=== PATIENT | male | born 1935 | race Caucasian/White ===

== ENCOUNTER 2017-10-31 20:12 | Inpatient (IN) | payer MEDICARE, MEDICAID ==
[~2017-10-31] VITALS: Ht 182.9 cm; Wt 81.2 kg
[2017-10-31 20:43] LABS: MEAN CORPUSCULAR HEMOGLOBIN 31.5 pg (27.0-33.0); MEAN CORPUSCULAR HGB CONC 32.9 g/dl (32.0-36.5); MEAN CORPUSCULAR VOLUME 95.7 fl (80.0-96.0); PLATELET COUNT, AUTOMATED 212 10^3/uL (150-450); RED CELL DISTRIBUTION WIDTH 12.9 % (11.5-14.5); WHITE BLOOD COUNT 12.1 10^3/uL (4.0-10.0)
[2017-10-31] MEDS ORDERED: ACETAMINOPHEN 650 MG SUPP PR ONE (20:45)
[2017-10-31] MEDS ORDERED: NS 500 ML IV ONE (20:45)
[2017-10-31 21:01] LABS: ADD MANUAL DIFFER YES; DIFF SLIDE NUMBER 301
[2017-10-31 21:05] LABS: BANDS 11 % (< 11); BASOPHILS 1 % (0-4)
[2017-10-31 21:18] LABS: ALBUMIN 3.4 GM/DL (3.2-5.2); ALBUMIN/GLOBULIN RATIO 0.97 (1.00-1.93); ALKALINE PHOSPHATASE 91 U/L (45-117); ALT/SGPT 27 U/L (12-78); ANION GAP 11 MEQ/L (8-16); AST/SGOT 28 U/L (7-37); BILIRUBIN,DIRECT < 0.1 MG/DL (0.0-0.2); BILIRUBIN,TOTAL 0.3 MG/DL (0.2-1.0); BLOOD UREA NITROGEN 18 MG/DL (7-18); CALCIUM LEVEL 8.8 MG/DL (8.8-10.2); CARBON DIOXIDE LEVEL 25 MEQ/L (21-32); CHLORIDE LEVEL 107 MEQ/L (98-107); CREATININE FOR GFR 0.96 MG/DL (0.70-1.30); GLOMERULAR FILTRATION RATE > 60.0 (>35); GLUCOSE, FASTING 101 MG/DL (83-110); POTASSIUM SERUM 3.4 MEQ/L (3.5-5.1); SODIUM LEVEL 143 MEQ/L (136-145); T UPTAKE 37 % (33-40); THYROXINE (T4) 9.2 UG/DL (4.5-12.0); TOTAL PROTEIN 6.9 GM/DL (6.4-8.2)
[2017-10-31] MEDS ORDERED: VANCOMYCIN HCL 1,000 MG, VIAL MATE ADAPTER 1 EACH in D5W 250 ML IV ONE (21:30)
[2017-10-31] MEDS ORDERED: IMIPENEM/CILASTATIN 500 MG in D5W MINI-BAG PLUS 100 ML IV ONE (21:30)
[2017-10-31] MEDS ORDERED: NS 1,000 ML IV SCH (22:05)
[2017-10-31] MEDS ORDERED: ISOVUE-370 76% 100ML VIAL (Q9967) As Ordered ONE (22:12)
[2017-10-31] MEDS ORDERED: ONDANSETRON 4MG/2ML VIAL (J2405) IV PRN (22:15)
[2017-10-31] MEDS ORDERED: BISA10SU4 PR (22:18)
[2017-10-31] MEDS ORDERED: ENAL10TA2 PO (22:18)
[2017-10-31] MEDS ORDERED: ENEMENE16 PR (22:18)
[2017-10-31] MEDS ORDERED: TYLE650T35 PO (22:18)
[2017-10-31] MEDS ORDERED: LOVA40TA PO (22:18)
[2017-10-31] MEDS ORDERED: TYLE325T5 PO (22:18)
[2017-10-31] MEDS ORDERED: NAME28CA PO (22:18)
[2017-10-31] MEDS ORDERED: MILKSUS PO (22:18)
[2017-10-31] MEDS ORDERED: BISO10TA6 PO (22:18)
[2017-10-31] MEDS ORDERED: BISACODYL 10 MG SUPP PR PRN (22:30)
[2017-10-31] MEDS ORDERED: FLEET ENEMA PR PRN (22:30)
[2017-10-31] MEDS ORDERED: POTASSIUM CHLORIDE 10 MEQ SR TABLET PO ONE (22:30)
[2017-10-31] MEDS ORDERED: MOM 30ML SUSPENSION UDC PO PRN (22:30)
[2017-10-31 22:32] LABS: ERYTHROCYTE SEDIMENTATION RATE 28 mm/hr (0-20)
--- NOTE | 2017-10-31 23:10 | REPUSA ---
CT of the chest Clinical statement: fever. Technique: Multiple axial CT images were obtained from the thoracic inlet through the upper abdomen a fter a bolus administration of nonionic intravenous contrast. Coronal and sagittal reconstructions we re also obtained. Comparison: None. Findings: The central pulmonary arteries and thoracic aorta are unremarkable. Thyroid gland is within normal limits. There is no thoracic lymphadenopathy. There are are small bilateral lower lobe infilt rates. Limited imaging of the upper abdomen is unremarkable. There are no suspicious osseous lesions. Impression: 1. Small bilateral lower lobe infiltrate/atelectasis.
--- NOTE | 2017-10-31 23:10 | REPUSA ---
CT of the abdomen and pelvis with contrast Clinical statement: fever. Technique: Multiple axial CT images were obtained from the base of the lungs through the floor of the pelvis utilizing 5 mm axial slices after administration of nonionic intravenous contrast. Coronal an d sagittal reconstructions were also obtained. No comparison is available. Findings: Abdomen: The liver, spleen, pancreas, kidneys, gallbladder, and adrenal glands are unremarkable. Asya ral bilateral renal cysts are noted. The aorta demonstrates moderate diffuse atherosclerosis, but is otherwise within normal limits. There is no evidence of abdominal lymphadenopathy or ascites. Pelvis: Diffuse diverticulosis of the sigmoid colon is noted. There is no evidence of diverticulitis. The bowel is otherwise unremarkable, with no obstructive or inflammatory changes. The urinary bladd er is catheterized but otherwise within normal limits. The other pelvic structures appear grossly int act. There is no evidence of pelvic lymphadenopathy or ascites. Bones: There are no suspicious osseous abnormalities seen. Bilateral hip arthroplasties are intact. M ultilevel degenerative disc disease is noted throughout the lumbar spine, most severe at L1/L2. Impression: 1. No obstructive or inflammatory bowel changes. Diffuse sigmoid diverticulosis. 2. No evidence of hydronephrosis or nephrolithiasis. Simple bilateral renal cysts. 3. Moderate spondylosis of the lumbar spine.
[2017-11-01] VITALS (7 sets, daily range): BP systolic 120–176; BP diastolic 57–83
[2017-11-01] MEDS ORDERED: PRAD150C (01:55)
[2017-11-01] MEDS ORDERED: MELO15TA4 (01:55)
[2017-11-01] MEDS ORDERED: CART180C3 (01:55)
[2017-11-01] MEDS ORDERED: ENOXAPARIN 80 MG/0.8 ML SYRINGE (J1650) SC SCH (04:00)
[2017-11-01 05:31] LABS: MEAN CORPUSCULAR HEMOGLOBIN 30.8 pg (27.0-33.0); MEAN CORPUSCULAR HGB CONC 32.7 g/dl (32.0-36.5); MEAN CORPUSCULAR VOLUME 94.1 fl (80.0-96.0); PLATELET COUNT, AUTOMATED 212 10^3/uL (150-450); WHITE BLOOD COUNT 21.3 10^3/uL (4.0-10.0)
[2017-11-01] MEDS ORDERED: DONE1TAB62 PO (05:32)
[2017-11-01] MEDS ORDERED: CART180C3 PO (05:32)
[2017-11-01] MEDS ORDERED: MELO15TA4 PO (05:32)
[2017-11-01] MEDS ORDERED: PRAD150C PO (05:32)
[2017-11-01 05:41] LABS: ANION GAP 8 MEQ/L (8-16); BLOOD UREA NITROGEN 19 MG/DL (7-18); CALCIUM LEVEL 8.3 MG/DL (8.8-10.2); CARBON DIOXIDE LEVEL 25 MEQ/L (21-32); CHLORIDE LEVEL 109 MEQ/L (98-107); CREATININE FOR GFR 0.88 MG/DL (0.70-1.30); GLOMERULAR FILTRATION RATE > 60.0 (>35); GLUCOSE, FASTING 110 MG/DL (83-110); MAGNESIUM LEVEL 1.9 MG/DL (1.8-2.4); POTASSIUM SERUM 4.2 MEQ/L (3.5-5.1); SODIUM LEVEL 142 MEQ/L (136-145)
[2017-11-01] MEDS ORDERED: HEPARIN SOD (PORCINE) 5000 UNITS/ML VIAL SC SCH (06:00)
--- NOTE | 2017-11-01 06:37 | HPE ---
DATE OF ADMISSION: 10/31/2017 PRIMARY CARE PROVIDER: Dr. Bing Monreal. HISTORY OF PRESENT ILLNESS: The patient is an 82-year-old male with past medical history significant for Alzheimer's dementia, two silent myocardial infarctions (NC), and hypertension, who was transferred from [facility] to [facility] on 10/31/2017, for fevers. The patient was just recently admitted to [facility] on 10/31/2017. Within hours, the patient was found to have a temperature of 104; therefore, the patient was transferred to [facility] Emergency Room for further evaluation. The patient has severe Alzheimer's dementia, not able to answer questions. Information was obtained by reviewing the chart and also talked to the son who is present in the room. Per the family member, the patient has been having chills and fevers. There was some increased cough in the past few weeks, and the patient also has urinary incontinence. He also was noted to have more frequent falls, more significant in the last few weeks. The patient was seen by the primary care provider last , and was told the lungs were clear. Does not have nausea, vomiting or abdominal pain, but the patient has been having intermittent diarrhea, but it seems to be patient's baseline. The patient does not have any back sores. PAST MEDICAL HISTORY: 1. Two sudden NC resulting in open heart surgery (CABG) more than 25 years ago. 2. Hypertension. PAST SURGICAL HISTORY: 1. Bilateral hip replacement. 2. CABG approximately more than 25 years ago. ALLERGIES: None. SOCIAL HISTORY: The patient used to smoke a pipe. Quite 25 years ago. No alcohol use. No recreational drug use. The patient is DO NOT RESUSCITATE (DNR) and DO NOT INTUBATE (DNI). REVIEW OF SYSTEMS: Unable to obtain due to the patient's baseline dementia, but information obtained from the family member includes fever and chills and urinary incontinence, some mild increased cough, chronic bilateral hip and bilateral knee pain. The patient does have urinary incontinence. OBJECTIVE: VITAL SIGNS: Temperature is 101.2, pulse 88, respirations 20, blood pressure 137/71, pulse oximetry 93% with three liters nasal cannula. GENERAL: The patient is alert and awake, in mild to moderate distress, not oriented at all, not able to answer questions, not really able to follow command. HEENT: Normocephalic, atraumatic. CARDIOVASCULAR: There is a positive S1, S2. LUNGS: Positive crackles in the lung base. I cannot appreciate any wheezes. ABDOMEN: There are a few occasions the patient shows facial grimace when touched in abdomen but the finding cannot be reproduced consistently. Bowel sounds present. EXTREMITIES: No edema. No cyanosis. NEUROLOGIC: Unable to test due to patient not able to follow commands. LABORATORY DATA: WBC 12.1, hemoglobin 13.3, hematocrit 40.4, platelet count 215. Band is 11. Sodium 143, potassium 3.4, chloride 107, carbon dioxide 25, BUN is 11, creatinine 0.96, GFR greater than 60, fasting glucose 101, lactic acid 1.6, calcium 8.8, total bilirubin 0.3, direct bilirubin less than 0.1, AST 28, ALT 27, alkaline phosphatase 91, total protein 6.9, albumin 3.4. TSH 2.11. T4 is 9.2. UA is cloudy with 3+ blood, positive nitrite, with 3+ leukocyte esterase, too many to count RBC, 3+ bacteria. ASSESSMENT AND PLAN: 1. Fever of unknown origin: Patient admitted to progressive care unit (PCU) under inpatient status. There is a finding on imaging study that suggests lung source versus urinary source. Blood cultures pending. Urine culture pending. Followup with CT of the chest and abdomen. Patient has had a dose of broad-spectrum antibiotic in the emergency room. The patient was started on Rocephin intravenous (IV) for now. Continue with fluid support. 2. Hypertension: Continue home medication, which includes Zebeta 10 mg by mouth daily, Vasotec 10 mg by mouth daily. 3. History of two silent myocardial infarctions (NC), status post open heart surgery: Patient on atorvastatin. Patient on Zebeta and Vasotec. 4. Deep venous thrombosis (DVT) prophylaxis: The patient will be on heparin. 5. Paroxysmal Atrial fibulation. On beta ijeoma. Rate in satisfactory range. On therapeutic dose of Lovenox. Patient did have one brief episode of Atrial fibulation earlier. But rhythm return to sinus in few hours. CODE STATUS: DO NOT RESUSCITATE (DNR), DO NOT INTUBATE (DNI). Addendum: When more information became available. Patient has diagnosis of A fib. Not sure why patient is not on anticoagulation at this moment. Update the info as Diagnosis 5. MTDD
--- NOTE | 2017-11-01 06:45 | IPN ---
DATE: 11/01/2017 Shortly after the admission process, the patient was found to have an irregular heart rate. An EKG was obtained and it showed atrial fibrillation. Shortly after the patient settled into the progressive care unit (PCU), the patient's heart rhythm converted back to sinus rhythm. No prior information is available. It is not sure whether the patient has a history of atrial fibrillation in the past or if this is just a new isolated incident of atrial fibrillation. The patient's anticoagulation is switched to a therapeutic dose of Lovenox. We will try to obtain the records from the primary care provider prior to the [facility] admission. Will also look for [facility] Home admission notes to confirm the patient's complete medical history and the patient's medication list. Throughout the whole time, the patient is resting comfortably in bed with no acute distress.
--- NOTE | 2017-11-01 07:36 | REP ---
AP and lateral chest: Comparison is 03/16/2011. There is an incomplete inspiratory effort with under aeration of the lung triplett. No focal infiltrates are identified. No pleural effusions are identified. Cardiac size is normal. There are sternotomy wires, unchanged. The angel, mediastinum, and bony thorax are unremarkable. Impression: Incomplete inspiratory effort, otherwise negative AP and lateral chest. Signed by Manoj Varela MD 11/01/2017 07:28 A
[2017-11-01] MEDS: CEFTRIAXONE SOD 1 GM in APPROPRIATE DILUENT 1 EA IV SCH (08:37)
[2017-11-01] MEDS: BISOPROLOL FUMARATE 10 MG TAB PO SCH (08:37)
[2017-11-01] MEDS: ENALAPRIL MALEATE 10 MG TAB PO SCH (08:38)
--- NOTE | 2017-11-01 10:51 | IPNPDOC ---
Subjective Date Seen The patient was seen on 11/01/17. Subjective Chief Complaint/HPI The patient is a 82-year-old male admitted with a reason for visit of FEVER. Events since last encounter patient does not offer any complaints. Patient is pleasantly demented and humorous in his answers, Does not where he is . Does not recognize family has been his baseline for the past 3 to 4 years. No fever after admission. denied any nausea or vomiting or diarrhea, denied any cough . Does not remember whether he ate or not. However as per family when food is offered to him eats by himself otherwise does not eat. walks with a walker. Objective Physical Examination General Exam: Positive: Alert, Cooperative, No Acute Distress, Other (confused. ) Eye Exam: Positive: PERRLA, Conjunctiva & lids normal, EOMI, Negative: Sclera icteric ENT Exam: Positive: Atraumatic, Mucous membr. moist/pink, Pharynx Normal Neck Exam: Positive: Supple, Negative: JVD, thyromegaly Chest Exam: Positive: Rales (at the bases) Heart Exam: Positive: Rate Normal, Regular Rhythm, Normal S1, Normal S2, Negative: Murmurs, Rubs Abdomen Exam: Positive: Normal bowel sounds, Soft, Negative: Tenderness, Hepatospenomegaly Extremity Exam: Positive: Normal pulses, Negative: Clubbing, Cyanosis, Edema Neuro Exam: Positive: Normal Speech, Other (short shuffling gait. ) Psych Exam: Positive: Other (demented.) Assessment /Plan Problems (1) Fever Status: Acute Problem Text: Looking for source of any infection , does have dirty urine and also bilateral basal lung infiltrates. family did say he was coughing more the past few days and also has urinary incontinence. blood culture and urine culture ordered. will continue with empiric antibiotics for possible CAP Vs UTI (2) Paroxysmal A-fib Status: Chronic Problem Text: Now in sinus rhythm. Patient does have high Rodri Vasc 2 score of 4 so does meet criteria for continuing anticoagulation. However patient has fallen 4 times in the last 3 months so that increases the chance of trauma and major intracranial bleeding. Thats why i presume his PMD has stopped the oral anticoagulant. However while in hospital will continue Pradaxa. (3) CAD (coronary artery disease) Status: Chronic Problem Text: history of CABG 25 years ago (4) Hypertension Status: Chronic Problem Text: continue with enalapril (5) Dementia Status: Chronic Problem Text: Advanced dementia cannot recognize family or place. (6) Hyperlipidemia Status: Chronic Problem Text: continue statin Plan/VTE VTE Prophylaxis Ordered?: Yes VS, I&O, 24H, Fishbone Vital Signs/I&O Vital Signs Date Time Temp Pulse Resp B/P (MAP) Pulse Ox O2 Delivery O2 Flow Rate FiO2 11/01/17 08:37 61 123/59 11/01/17 08:00 98.9 17 92 Room Air 11/01/17 00:37 3.0 I&O- Last 24 Hours up to 6 AM 11/02/17 06:00 Intake Total 880 ml Balance 880 ml Laboratory Data 24H LABS Laboratory Tests 2 10/31/17 20:35: Neutrophils 82H, Band Neutrophils 11, Lymphocytes (Manual) 6L, Basophils (Manual ) 1, Platelet Estimate NORMAL, Red Blood Cell Morphology NORMAL, Erythrocyte Sedimentation Rate 28H, Anion Gap 11, Glomerular Filtration Rate > 60.0, Lactic Acid Level 1.6, Calcium Level 8.8, Aspartate Amino Transf (AST/SGOT) 28, Alanine Aminotransferase (ALT/SGPT) 27, Alkaline Phosphatase 91, Total Bilirubin 0.3, Direct Bilirubin < 0.1, C-Reactive Protein, Quantitative 0.64H, Total Protein 6.9, Albumin 3.4, Albumin/Globulin Ratio 0.97L, Thyroid Stimulating Hormone (TSH) 2.110, Free Thyroxine Index 3.4, Thyroxine (T4) 9.2, Triiodothyronine (T3) Uptake 37 10/31/17 21:00: Urine Appearance CLOUDYH, Urine Color YELLOW, Urine pH 5.0, Urine Specific [place] 1.016, Urine Protein NEGATIVE, Urine Glucose (UA) NEGATIVE, Urine Ketones TRACEH, Urine Urobilinogen 0.2, Urine Bilirubin NEGATIVE, Urine Leukocyte Esterase 3+H, Urine Blood 3+H, Urine Nitrite POSITIVE, Urine WBC (Auto ) 93H, Urine RBC (Auto) TNTCH, Urine Hyaline Casts (Auto) 0, Urine Bacteria ( Auto) 3+H, Urine Squamous Epithelial Cells 0, Urine Mucus (Auto) SMALL, Urine Sperm (Auto) 11/01/17 04:53: Anion Gap 8, Glomerular Filtration Rate > 60.0, Calcium Level 8.3L, Nucleated Red Blood Cells % (auto) 0.0, Blood Urea Nitrogen 19H, Creatinine 0.88, Sodium Level 142, Potassium Level 4.2#, Chloride Level 109H, Carbon Dioxide Level 25, Magnesium Level 1.9 CBC/BMP Laboratory Tests 10/31/17 20:35 Red Blood Count 4.22 L, Mean Corpuscular Volume 95.7, Mean Corpuscular Hemoglobin 31.5, Mean Corpuscular Hemoglobin Concent 32.9, Red Cell Distribution Width 12.9 11/01/17 04:53 Red Blood Count 3.90 L, Mean Corpuscular Volume 94.1, Mean Corpuscular Hemoglobin 30.8, Mean Corpuscular Hemoglobin Concent 32.7, Red Cell Distribution Width 13.0, Calcium Level 8.3 L Microbiology Microbiology 10/31/17 Blood Culture, Received Pending 10/31/17 Influenza Virus Type A Antigen - Final, Complete 10/31/17 Influenza Virus Type B Antigen - Final, Complete 10/31/17 Urine Culture, Received Pending LILO WHITNEY MD Nov 01, 2017 10:50
[2017-11-01] MEDS ORDERED: SLF 3 ML SYR IV PRN (16:30)
--- NOTE | 2017-11-01 16:51 | ECGEPIP ---
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 No prior ECG available for comparison at the time of interpretation. Electronically Signed On 11-01-2017 16:51:27 EST by Nirmal Mesa
--- NOTE | 2017-11-01 16:53 | ECGEPIP ---
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 Electronically Signed On 11-01-2017 16:53:08 EST by Nirmal Mesa
[2017-11-01] MEDS: ACETAMINOPHEN TAB 650MG DOSE (2X325MG) PO PRN (19:36)
--- NOTE | 2017-11-01 20:55 | ECHO ---
DATE OF PROCEDURE: 11/01/2017 REFERRING PHYSICIAN: Lucero Wright MD PATIENT LOCATION: Room 3211 REASON FOR ECHOCARDIOGRAM: Paroxysmal atrial fibrillation. 2D MEASUREMENTS: IVS: 1.2 cm LV: 5.2 cm LVPW: 1.2 cm LA: 4.3 cm Aorta: 3.1 cm DOPPLER MEASUREMENTS: Peak velocity across the aortic valve: 1.9 m/s Peak velocity across the LVOT: 0.89 m/s Mitral E: 0.91, Mitral A: 0.60, with a ratio of 1.5 Maximum tricuspid valve velocity: 2.4 m/s 2D COMMENTS: 1. Normal left ventricular size, wall thickness and normal global left ventricular systolic function. The estimated left ventricular systolic ejection fraction is 65 to 70%. 2. Mildly enlarged left atrium. Normal right atrium and right ventricle. 3. The atrial septum appeared to be normal without evidence of defect or shunt. 4. Normal aortic root. 5. No pericardial effusion seen. 6. Mildly calcified aortic valve with minimally decreased leaflet excursion. Mildly calcified mitral annulus with normal anterior mitral valve leaflet motion. Normal tricuspid valve. The pulmonic valve and proximal pulmonary artery branches were not well visualized. 7. The inferior vena cava was not visualized. DOPPLER: It detects trace aortic regurgitation, mild mitral regurgitation, and mild tricuspid regurgitation. The calculated pulmonary artery systolic pressure varies between 30 to 40 mmHg. Assessment of the left ventricular diastolic function appeared to be normal. IMPRESSION: 1. Normal global left ventricular systolic function. Left ventricular diastolic function appeared to be normal. 2. Aortic valve sclerosis with trace aortic regurgitation and trivial aortic stenosis. 3. Mitral annulus calcification with mild mitral regurgitation and mildly enlarged left atrium. 2. Mild tricuspid regurgitation with mild pulmonary hypertension. 3. The inferior vena cava was not well visualized. [facility]
[2017-11-01] MEDS: SLF 3 ML SYR IV SCH (22:00)
[2017-11-02] VITALS (7 sets, daily range): BP systolic 144–198; BP diastolic 50–96
[2017-11-02] MEDS: DABIGATRAN ETEXILATE 75 MG CAP (PRADAXA) PO SCH ×3 (01:08→20:40)
[2017-11-02] MEDS: SIMVASTATIN 40 MG TAB PO SCH ×2 (01:08→20:40)
[2017-11-02] MEDS: CEFTRIAXONE SOD 1 GM in APPROPRIATE DILUENT 1 EA IV SCH ×3 (01:08→20:39)
[2017-11-02] MEDS ORDERED: ENALAPRIL MALEATE 5 MG TAB PO ONE (04:45)
[2017-11-02] MEDS: SLF 3 ML SYR IV SCH ×3 (04:57→20:40)
[2017-11-02 05:46] LABS: MEAN CORPUSCULAR HEMOGLOBIN 30.9 pg (27.0-33.0); MEAN CORPUSCULAR HGB CONC 32.1 g/dl (32.0-36.5); MEAN CORPUSCULAR VOLUME 96.3 fl (80.0-96.0); PLATELET COUNT, AUTOMATED 190 10^3/uL (150-450); RED CELL DISTRIBUTION WIDTH 13.2 % (11.5-14.5); WHITE BLOOD COUNT 10.9 10^3/uL (4.0-10.0)
[2017-11-02 06:13] LABS: ANION GAP 6 MEQ/L (8-16); BLOOD UREA NITROGEN 18 MG/DL (7-18); CALCIUM LEVEL 8.6 MG/DL (8.8-10.2); CARBON DIOXIDE LEVEL 28 MEQ/L (21-32); CHLORIDE LEVEL 107 MEQ/L (98-107); CREATININE FOR GFR 0.82 MG/DL (0.70-1.30); GLOMERULAR FILTRATION RATE > 60.0 (>35); GLUCOSE, FASTING 96 MG/DL (83-110); MAGNESIUM LEVEL 2.2 MG/DL (1.8-2.4); POTASSIUM SERUM 3.9 MEQ/L (3.5-5.1); SODIUM LEVEL 141 MEQ/L (136-145)
[2017-11-02] MEDS: ENALAPRIL MALEATE 10 MG TAB PO SCH (08:51)
[2017-11-02] MEDS: BISOPROLOL FUMARATE 10 MG TAB PO SCH (08:53)
[2017-11-02] MEDS ORDERED: INFLUENZA VIRUS VACCINE HIGH DOSE 0.5 ML SYRINGE (90662) IM ONE (09:00)
--- NOTE | 2017-11-02 09:21 | IPNPDOC ---
Subjective Date Seen The patient was seen on 11/02/17. Subjective Chief Complaint/HPI The patient is a 82-year-old male admitted with a reason for visit of FEVER. Events since last encounter pleasantly confused, Does not offer any complaints. No fever noted. No chills, no cough or phlegm noted. No vomiting or diarrhea. Objective Physical Examination General Exam: Positive: Alert, Cooperative, No Acute Distress, Other (confused. ) Eye Exam: Positive: PERRLA, Conjunctiva & lids normal, EOMI, Negative: Sclera icteric ENT Exam: Positive: Atraumatic, Mucous membr. moist/pink, Pharynx Normal Neck Exam: Positive: Supple, Negative: JVD, thyromegaly Chest Exam: Positive: Rales (at the bases) Heart Exam: Positive: Rate Normal, Regular Rhythm, Normal S1, Normal S2, Negative: Murmurs, Rubs Abdomen Exam: Positive: Normal bowel sounds, Soft, Negative: Tenderness, Hepatospenomegaly Extremity Exam: Positive: Normal pulses, Negative: Clubbing, Cyanosis, Edema Neuro Exam: Positive: Normal Speech, Other (short shuffling gait. ) Psych Exam: Positive: Other (demented.) Assessment /Plan Problems (1) Fever Status: Acute Problem Text: From UTI Urine culture positive for e coli will continue with ceftriaxone. (2) Paroxysmal A-fib Status: Chronic Problem Text: Now in sinus rhythm. Patient does have high Rodri Vasc 2 score of 4 so does meet criteria for continuing anticoagulation. However patient has fallen 4 times in the last 3 months so that increases the chance of trauma and major intracranial bleeding. Thats why i presume his PMD has stopped the oral anticoagulant. However while in hospital will continue Pradaxa. (3) CAD (coronary artery disease) Status: Chronic Problem Text: history of CABG 25 years ago (4) Hypertension Status: Chronic Problem Text: continue with enalapril (5) Dementia Status: Chronic Problem Text: Advanced dementia cannot recognize family or place. (6) Hyperlipidemia Status: Chronic Problem Text: continue statin Plan/VTE VTE Prophylaxis Ordered?: Yes VS, I&O, 24H, Fishbone Vital Signs/I&O Vital Signs Date Time Temp Pulse Resp B/P (MAP) Pulse Ox O2 Delivery O2 Flow Rate FiO2 11/02/17 08:53 64 11/02/17 08:51 144/90 11/02/17 08:00 97.8 18 95 Room Air 11/01/17 00:37 3.0 I&O- Last 24 Hours up to 6 AM 11/03/17 06:00 Intake Total 240 ml Output Total 0 ml Balance 240 ml Laboratory Data 24H LABS Laboratory Tests 2 11/02/17 05:21: Nucleated Red Blood Cells % (auto) 0.0, Anion Gap 6L, Glomerular Filtration Rate > 60.0, Blood Urea Nitrogen 18, Creatinine 0.82, Sodium Level 141, Potassium Level 3.9, Chloride Level 107, Carbon Dioxide Level 28, Calcium Level 8.6L, Magnesium Level 2.2 CBC/BMP Laboratory Tests 11/02/17 05:21 Red Blood Count 3.79 L, Mean Corpuscular Volume 96.3 H, Mean Corpuscular Hemoglobin 30.9, Mean Corpuscular Hemoglobin Concent 32.1, Red Cell Distribution Width 13.2, Calcium Level 8.6 L Microbiology Microbiology 10/31/17 Blood Culture - Preliminary, Resulted No growth after 24 hours . All specim... 10/31/17 Influenza Virus Type A Antigen - Final, Complete 10/31/17 Influenza Virus Type B Antigen - Final, Complete 10/31/17 Urine Culture - Final, Complete Escherichia Coli LILO WHITNEY MD Nov 02, 2017 09:21
[2017-11-03] MEDS: SLF 3 ML SYR IV SCH ×3 (05:38→20:50)
[2017-11-03] MEDS: ACETAMINOPHEN TAB 650MG DOSE (2X325MG) PO PRN (06:04)
[2017-11-03 06:06] VITALS: BP 130/74
[2017-11-03 06:57] LABS: MEAN CORPUSCULAR HEMOGLOBIN 30.8 pg (27.0-33.0); MEAN CORPUSCULAR HGB CONC 32.6 g/dl (32.0-36.5); MEAN CORPUSCULAR VOLUME 94.4 fl (80.0-96.0); PLATELET COUNT, AUTOMATED 198 10^3/uL (150-450); WHITE BLOOD COUNT 8.8 10^3/uL (4.0-10.0)
[2017-11-03 07:11] LABS: ANION GAP 9 MEQ/L (8-16); BLOOD UREA NITROGEN 11 MG/DL (7-18); CALCIUM LEVEL 8.4 MG/DL (8.8-10.2); CARBON DIOXIDE LEVEL 27 MEQ/L (21-32); CHLORIDE LEVEL 106 MEQ/L (98-107); CREATININE FOR GFR 0.81 MG/DL (0.70-1.30); GLOMERULAR FILTRATION RATE > 60.0 (>35); GLUCOSE, FASTING 90 MG/DL (83-110); MAGNESIUM LEVEL 2.2 MG/DL (1.8-2.4); POTASSIUM SERUM 3.6 MEQ/L (3.5-5.1); SODIUM LEVEL 142 MEQ/L (136-145)
[2017-11-03 08:00] VITALS: BP 135/73
[2017-11-03] MEDS: DABIGATRAN ETEXILATE 75 MG CAP (PRADAXA) PO SCH ×2 (09:08→20:49)
[2017-11-03] MEDS: CEFTRIAXONE SOD 1 GM in APPROPRIATE DILUENT 1 EA IV SCH ×2 (09:08→20:49)
[2017-11-03] MEDS: ENALAPRIL MALEATE 10 MG TAB PO SCH (09:09)
[2017-11-03] MEDS: BISOPROLOL FUMARATE 10 MG TAB PO SCH (09:09)
--- NOTE | 2017-11-03 10:33 | IPNPDOC ---
Subjective Date Seen The patient was seen on 11/03/17. Subjective Chief Complaint/HPI The patient is a 82-year-old male admitted with a reason for visit of FEVER. Events since last encounter no new issues overnight , no fever or chills, does not offer any complaints. no vomiting or diarrhea. Objective Physical Examination General Exam: Positive: Alert, Cooperative, No Acute Distress, Other (confused. ) Eye Exam: Positive: PERRLA, Conjunctiva & lids normal, EOMI, Negative: Sclera icteric ENT Exam: Positive: Atraumatic, Mucous membr. moist/pink, Pharynx Normal Neck Exam: Positive: Supple, Negative: JVD, thyromegaly Chest Exam: Positive: Rales (at the bases) Heart Exam: Positive: Rate Normal, Regular Rhythm, Normal S1, Normal S2, Negative: Murmurs, Rubs Abdomen Exam: Positive: Normal bowel sounds, Soft, Negative: Tenderness, Hepatospenomegaly Extremity Exam: Positive: Normal pulses, Negative: Clubbing, Cyanosis, Edema Neuro Exam: Positive: Normal Speech, Other (short shuffling gait. ) Psych Exam: Positive: Other (demented.) Assessment /Plan Problems (1) Fever Status: Acute Problem Text: From UTI Urine culture positive for e coli will continue with ceftriaxone. (2) Paroxysmal A-fib Status: Chronic Problem Text: Now in sinus rhythm. Patient does have high Rodri Vasc 2 score of 4 so does meet criteria for continuing anticoagulation. However patient has fallen 4 times in the last 3 months so that increases the chance of trauma and major intracranial bleeding. Thats why i presume his PMD has stopped the oral anticoagulant. However while in hospital will continue Pradaxa. (3) CAD (coronary artery disease) Status: Chronic Problem Text: history of CABG 25 years ago (4) Hypertension Status: Chronic Problem Text: continue with enalapril (5) Dementia Status: Chronic Problem Text: Advanced dementia cannot recognize family or place. (6) Hyperlipidemia Status: Chronic Problem Text: continue statin Plan/VTE VTE Prophylaxis Ordered?: Yes VS, I&O, 24H, Fishbone Vital Signs/I&O Vital Signs Date Time Temp Pulse Resp B/P (MAP) Pulse Ox O2 Delivery O2 Flow Rate FiO2 11/03/17 09:09 135/73 11/03/17 09:09 62 11/03/17 08:00 98.0 18 95 Room Air 11/01/17 00:37 3.0 I&O- Last 24 Hours up to 6 AM 11/04/17 06:00 Intake Total 600 ml Balance 600 ml Laboratory Data 24H LABS Laboratory Tests 2 11/03/17 05:51: Nucleated Red Blood Cells % (auto) 0.0, Anion Gap 9, Glomerular Filtration Rate > 60.0, Blood Urea Nitrogen 11, Creatinine 0.81, Sodium Level 142, Potassium Level 3.6, Chloride Level 106, Carbon Dioxide Level 27, Calcium Level 8.4L, Magnesium Level 2.2 CBC/BMP Laboratory Tests 11/03/17 05:51 Red Blood Count 3.90 L, Mean Corpuscular Volume 94.4, Mean Corpuscular Hemoglobin 30.8, Mean Corpuscular Hemoglobin Concent 32.6, Red Cell Distribution Width 13.0, Calcium Level 8.4 L Microbiology Microbiology 10/31/17 Blood Culture - Preliminary, Resulted No Growth after 48 hours. All Specime... 10/31/17 Influenza Virus Type A Antigen - Final, Complete 10/31/17 Influenza Virus Type B Antigen - Final, Complete 10/31/17 Urine Culture - Final, Complete Escherichia Coli LILO WHITNEY MD Nov 03, 2017 10:33
[2017-11-03 11:27] VITALS: BP 149/80
[2017-11-03 16:00] VITALS: BP 134/67
[2017-11-03 19:33] VITALS: BP 164/71
[2017-11-03] MEDS: SIMVASTATIN 40 MG TAB PO SCH (20:49)
[2017-11-04] VITALS: BP 162/84
[2017-11-04 04:00] VITALS: BP 208/92
[2017-11-04] MEDS ORDERED: ENALAPRIL MALEATE 10 MG TAB PO ONE (04:00)
[2017-11-04 05:17] LABS: MEAN CORPUSCULAR HEMOGLOBIN 30.8 pg (27.0-33.0); MEAN CORPUSCULAR HGB CONC 32.7 g/dl (32.0-36.5); MEAN CORPUSCULAR VOLUME 93.9 fl (80.0-96.0); PLATELET COUNT, AUTOMATED 215 10^3/uL (150-450); RED CELL DISTRIBUTION WIDTH 12.7 % (11.5-14.5); WHITE BLOOD COUNT 10.4 10^3/uL (4.0-10.0)
[2017-11-04 05:33] LABS: ANION GAP 8 MEQ/L (8-16); BLOOD UREA NITROGEN 15 MG/DL (7-18); CALCIUM LEVEL 8.6 MG/DL (8.8-10.2); CARBON DIOXIDE LEVEL 29 MEQ/L (21-32); CHLORIDE LEVEL 106 MEQ/L (98-107); CREATININE FOR GFR 0.75 MG/DL (0.70-1.30); GLOMERULAR FILTRATION RATE > 60.0 (>35); GLUCOSE, FASTING 88 MG/DL (83-110); MAGNESIUM LEVEL 2.2 MG/DL (1.8-2.4); POTASSIUM SERUM 3.3 MEQ/L (3.5-5.1); SODIUM LEVEL 143 MEQ/L (136-145)
[2017-11-04] MEDS: SLF 3 ML SYR IV SCH (05:41)
[2017-11-04] MEDS ORDERED: POTASSIUM CHLORIDE 10 MEQ SR TABLET PO ONE (06:30)
[2017-11-04] MEDS ORDERED: LEVO500T3 PO (07:34)
[2017-11-04 08:00] VITALS: BP 175/80
[2017-11-04 09:16] VITALS: BP 175/80
[2017-11-04] MEDS: BISOPROLOL FUMARATE 10 MG TAB PO SCH (09:16)
[2017-11-04] MEDS: ENALAPRIL MALEATE 10 MG TAB PO SCH (09:16)
[2017-11-04] MEDS: DABIGATRAN ETEXILATE 75 MG CAP (PRADAXA) PO SCH (09:16)
[2017-11-04] MEDS: CEFTRIAXONE SOD 1 GM in APPROPRIATE DILUENT 1 EA IV SCH (09:16)
[2017-11-04 11:15] VITALS: BP 162/72
== END 2017-11-04 11:30 | DRG 690 ==
LOC: EDBD 20:12 → M ED 20:12 → M ED INP 22:05 → M PCU 11-01 02:09
PROVIDERS: ADMIT Internal Medicine; ATTEND Internal Medicine Nephrology
DX: N39.0 Urinary tract infection, site not specified (principal); G30.9 Alzheimer's disease, unspecified; F02.80 Dementia in other diseases classified elsewhere, unspecified severity, without behavioral disturbance, psychotic disturbance, mood disturbance, and anxiety; I25.2 Old myocardial infarction; I10 Essential (primary) hypertension; Z96.641 Presence of right artificial hip joint; Z96.642 Presence of left artificial hip joint; Z66 Do not resuscitate; I48.0 Paroxysmal atrial fibrillation; I25.10 Atherosclerotic heart disease of native coronary artery without angina pectoris; E78.5 Hyperlipidemia, unspecified; B96.29 Other Escherichia coli [E. coli] as the cause of diseases classified elsewhere

== ENCOUNTER → 2017-11-07 | Outpatient (REF) | payer MEDICARE, MEDICAID ==
[~2017-11-07] MED LIST: BISA10SU4 PR; BISO10TA6 PO; CART180C3; CART180C3 PO; DONE1TAB62 PO; ENAL10TA2 PO; ENEMENE16 PR; LEVO500T3 PO; LOVA40TA PO; MELO15TA4; MELO15TA4 PO; MILKSUS PO; NAME28CA PO; PRAD150C; PRAD150C PO; TYLE325T5 PO; TYLE650T35 PO
== END ==
LOC: SKLAB6 07:00
PROVIDERS: ATTEND Internal Medicine
DX: I48.91 Unspecified atrial fibrillation (principal); I25.10 Atherosclerotic heart disease of native coronary artery without angina pectoris; I10 Essential (primary) hypertension; Z95.1 Presence of aortocoronary bypass graft

== ENCOUNTER → 2017-12-05 | Outpatient (REF) | payer MEDICARE, MEDICAID | LOC: SKLAB6 07:00 | DX: F03.91 Unspecified dementia, unspecified severity, with behavioral disturbance (principal); Z79.899 Other long term (current) drug therapy | CPT/HCPCS: 84443 ==

== ENCOUNTER → 2017-12-23 | Outpatient (REF) | payer MEDICARE, MEDICAID ==
[2017-12-23 10:31] LABS: ANION GAP 8 MEQ/L (8-16); BLOOD UREA NITROGEN 31 MG/DL (7-18); CALCIUM LEVEL 8.7 MG/DL (8.8-10.2); CARBON DIOXIDE LEVEL 29 MEQ/L (21-32); CHLORIDE LEVEL 105 MEQ/L (98-107); CREATININE FOR GFR 1.23 MG/DL (0.70-1.30); GLOMERULAR FILTRATION RATE 59.7 (>35); GLUCOSE, FASTING 127 MG/DL (70-100); POTASSIUM SERUM 4.5 MEQ/L (3.5-5.1); SODIUM LEVEL 142 MEQ/L (136-145)
== END ==
LOC: SKLAB6 07:00
DX: I50.9 Heart failure, unspecified (principal); F03.91 Unspecified dementia, unspecified severity, with behavioral disturbance
CPT/HCPCS: 36415

== ENCOUNTER → 2018-02-06 | Outpatient (REF) | payer MEDICARE, MEDICAID ==
[2018-02-06 13:16] LABS: ANION GAP 8 MEQ/L (8-16); BLOOD UREA NITROGEN 43 MG/DL (7-18); CALCIUM LEVEL 8.6 MG/DL (8.8-10.2); CARBON DIOXIDE LEVEL 23 MEQ/L (21-32); CHLORIDE LEVEL 109 MEQ/L (98-107); CREATININE FOR GFR 1.22 MG/DL (0.70-1.30); GLOMERULAR FILTRATION RATE > 60.0 (>35); GLUCOSE, FASTING 97 MG/DL (70-100); SODIUM LEVEL 140 MEQ/L (136-145)
[2018-02-06 13:23] LABS: POTASSIUM SERUM 5.4 MEQ/L (3.5-5.1)
== END ==
LOC: SKLAB6 07:00
DX: F03.91 Unspecified dementia, unspecified severity, with behavioral disturbance (principal)
CPT/HCPCS: 80048

== ENCOUNTER → 2018-02-07 | Outpatient (REF) | payer MEDICARE, MEDICAID ==
[2018-02-07 08:40] LABS: ANION GAP 4 MEQ/L (8-16); BLOOD UREA NITROGEN 34 MG/DL (7-18); CALCIUM LEVEL 8.8 MG/DL (8.8-10.2); CARBON DIOXIDE LEVEL 28 MEQ/L (21-32); CHLORIDE LEVEL 110 MEQ/L (98-107); CREATININE FOR GFR 1.19 MG/DL (0.70-1.30); GLOMERULAR FILTRATION RATE > 60.0 (>35); GLUCOSE, FASTING 89 MG/DL (70-100); SODIUM LEVEL 142 MEQ/L (136-145)
[2018-02-07 08:45] LABS: POTASSIUM SERUM 5.2 MEQ/L (3.5-5.1)
== END ==
LOC: SKLAB6 07:00
DX: F03.91 Unspecified dementia, unspecified severity, with behavioral disturbance (principal)
CPT/HCPCS: 36415

== ENCOUNTER → 2018-02-14 | Outpatient (REF) | payer MEDICARE, MEDICAID ==
[2018-02-14 09:20] LABS: ANION GAP 7 MEQ/L (8-16); BLOOD UREA NITROGEN 27 MG/DL (7-18); CALCIUM LEVEL 8.5 MG/DL (8.8-10.2); CARBON DIOXIDE LEVEL 28 MEQ/L (21-32); CHLORIDE LEVEL 111 MEQ/L (98-107); CREATININE FOR GFR 1.06 MG/DL (0.70-1.30); GLOMERULAR FILTRATION RATE > 60.0 (>35); GLUCOSE, FASTING 88 MG/DL (70-100); POTASSIUM SERUM 4.2 MEQ/L (3.5-5.1); SODIUM LEVEL 146 MEQ/L (136-145)
== END ==
LOC: SKLAB6 07:00
DX: E87.5 Hyperkalemia (principal)
CPT/HCPCS: 36415

== ENCOUNTER → 2018-03-06 | Outpatient (REF) | payer MEDICARE, MEDICAID ==
[2018-03-06 09:39] LABS: VALPROIC ACID (DEPAKOTE) 24.6 UG/ML (50.0-100.0)
== END ==
LOC: SKLAB6 08:00
DX: F03.91 Unspecified dementia, unspecified severity, with behavioral disturbance (principal)
CPT/HCPCS: 80164

== ENCOUNTER 2018-03-31 14:15 | Outpatient (REF) | payer MEDICARE, MEDICAID ==
[2018-04-01 06:58] LABS: HEMATOCRIT 41.4 % (42.0-52.0); HEMOGLOBIN 13.5 g/dl (13.5-17.5); MEAN CORPUSCULAR HEMOGLOBIN 32.2 pg (27.0-33.0); MEAN CORPUSCULAR HGB CONC 32.6 g/dl (32.0-36.5); MEAN CORPUSCULAR VOLUME 98.8 fl (80.0-96.0); PLATELET COUNT, AUTOMATED 179 10^3/uL (150-450); RED BLOOD COUNT 4.19 10^6/uL (4.30-6.10); RED CELL DISTRIBUTION WIDTH 13.4 % (11.5-14.5); WHITE BLOOD COUNT 6.9 10^3/uL (4.0-10.0)
[2018-04-01 07:35] LABS: ANION GAP 6 MEQ/L (8-16); BLOOD UREA NITROGEN 22 MG/DL (7-18); CALCIUM LEVEL 8.4 MG/DL (8.8-10.2); CARBON DIOXIDE LEVEL 26 MEQ/L (21-32); CHLORIDE LEVEL 110 MEQ/L (98-107); CREATININE FOR GFR 0.92 MG/DL (0.70-1.30); GLOMERULAR FILTRATION RATE > 60.0 (>35); GLUCOSE, FASTING 76 MG/DL (70-100); POTASSIUM SERUM 4.4 MEQ/L (3.5-5.1); SODIUM LEVEL 142 MEQ/L (136-145); URIC ACID 6.6 MG/DL (3.5-7.2)
== END 2018-04-01 ==
LOC: SKLAB6 14:15
DX: R60.0 Localized edema (principal); E87.5 Hyperkalemia; I48.0 Paroxysmal atrial fibrillation; I10 Essential (primary) hypertension
CPT/HCPCS: 84443

== ENCOUNTER → 2018-04-17 | Outpatient (REF) | payer MEDICARE, MEDICAID ==
[2018-04-17 11:11] LABS: ANION GAP 6 MEQ/L (8-16); BLOOD UREA NITROGEN 15 MG/DL (7-18); CALCIUM LEVEL 8.2 MG/DL (8.8-10.2); CARBON DIOXIDE LEVEL 29 MEQ/L (21-32); CHLORIDE LEVEL 107 MEQ/L (98-107); CREATININE FOR GFR 0.91 MG/DL (0.70-1.30); GLOMERULAR FILTRATION RATE > 60.0 (>35); GLUCOSE, FASTING 81 MG/DL (70-100); POTASSIUM SERUM 4.4 MEQ/L (3.5-5.1); SODIUM LEVEL 142 MEQ/L (136-145)
== END ==
LOC: SKLAB6 07:00
DX: Z51.81 Encounter for therapeutic drug level monitoring (principal); Z79.899 Other long term (current) drug therapy
CPT/HCPCS: 36415

== ENCOUNTER → 2018-05-06 | Outpatient (REF) | payer MEDICARE, MEDICAID | LOC: SKLAB6 07:00 | DX: R60.9 Edema, unspecified (principal); E87.5 Hyperkalemia; F03.91 Unspecified dementia, unspecified severity, with behavioral disturbance | CPT/HCPCS: 84443 ==

== ENCOUNTER → 2018-06-24 | Outpatient (REF) | payer MEDICARE, MEDICAID | LOC: SKLAB6 08:00 | DX: M79.641 Pain in right hand (principal) | CPT/HCPCS: 73140 ==

== ENCOUNTER → 2018-10-02 | Outpatient (REF) | payer MEDICARE, MEDICAID ==
[2018-10-02 09:05] LABS: HEMATOCRIT 40.6 % (42.0-52.0); HEMOGLOBIN 13.5 g/dl (13.5-17.5); MEAN CORPUSCULAR HEMOGLOBIN 31.9 pg (27.0-33.0); MEAN CORPUSCULAR HGB CONC 33.3 g/dl (32.0-36.5); PLATELET COUNT, AUTOMATED 234 10^3/uL (150-450); RED BLOOD COUNT 4.23 10^6/uL (4.30-6.10); RED CELL DISTRIBUTION WIDTH 13.6 % (11.5-14.5); WHITE BLOOD COUNT 7.5 10^3/uL (4.0-10.0)
[2018-10-02 09:33] LABS: ALBUMIN 3.2 GM/DL (3.2-5.2); ALKALINE PHOSPHATASE 89 U/L (45-117); ALT/SGPT 24 U/L (12-78); ANION GAP 5 MEQ/L (8-16); AST/SGOT 20 U/L (7-37); BILIRUBIN,TOTAL 0.3 MG/DL (0.2-1.0); BLOOD UREA NITROGEN 20 MG/DL (7-18); CALCIUM LEVEL 8.9 MG/DL (8.8-10.2); CARBON DIOXIDE LEVEL 29 MEQ/L (21-32); CHLORIDE LEVEL 107 MEQ/L (98-107); CREATININE FOR GFR 0.98 MG/DL (0.70-1.30); GLOMERULAR FILTRATION RATE > 60.0 (>35); GLUCOSE, FASTING 99 MG/DL (70-100); POTASSIUM SERUM 3.8 MEQ/L (3.5-5.1); SODIUM LEVEL 141 MEQ/L (136-145); TOTAL PROTEIN 7.2 GM/DL (6.4-8.2)
== END ==
LOC: SKLAB6 07:00
DX: Z79.899 Other long term (current) drug therapy (principal)
CPT/HCPCS: 80053

== ENCOUNTER 2018-10-30 08:00 | Outpatient (REF) | payer MEDICARE, MEDICAID ==
[2018-10-30 08:19] LABS: ESTIMATED AVERAGE GLUCOSE 120 MG/DL (60-110); HEMOGLOBIN A1c 5.8 %
[2018-10-30 08:30] LABS: CHOLESTEROL LEVEL 161 MG/DL (<200); HDL CHOLESTEROL 25 MG/DL (>40); LDL CHOLESTEROL 71 MG/DL (<100); TRIGLYCERIDES LEVEL 326 MG/DL (<150)
== END 2018-11-01 ==
LOC: SKLAB6 11-01 08:00
DX: Z00.00 Encounter for general adult medical examination without abnormal findings (principal)
CPT/HCPCS: 83036

== ENCOUNTER → 2019-04-02 | Outpatient (REF) | payer MEDICARE ==
[~2019-04-02] MED LIST changes: -ENEMENE16 PR; +ENEMENE4 PR; +MELO15TA28; +MELO15TA28 PO; -MELO15TA4; -MELO15TA4 PO; +MILK120011 PO; -MILKSUS PO; -PRAD150C; -PRAD150C PO; +PRAD150C6; +PRAD150C6 PO
[2019-04-02 08:18] LABS: HEMATOCRIT 41.5 % (42.0-52.0); HEMOGLOBIN 13.2 g/dl (13.5-17.5); MEAN CORPUSCULAR HEMOGLOBIN 31.6 pg (27.0-33.0); MEAN CORPUSCULAR HGB CONC 31.8 g/dl (32.0-36.5); MEAN CORPUSCULAR VOLUME 99.3 fl (80.0-96.0); PLATELET COUNT, AUTOMATED 223 10^3/uL (150-450); RED BLOOD COUNT 4.18 10^6/uL (4.30-6.10); WHITE BLOOD COUNT 7.6 10^3/uL (4.0-10.0)
[2019-04-02 09:59] LABS: ALT/SGPT 18 U/L (12-78); BILIRUBIN,TOTAL 0.3 MG/DL (0.2-1.0); BLOOD UREA NITROGEN 22 MG/DL (7-18); CALCIUM LEVEL 8.4 MG/DL (8.8-10.2); CARBON DIOXIDE LEVEL 30 MEQ/L (21-32); CHLORIDE LEVEL 109 MEQ/L (98-107); CREATININE FOR GFR 0.88 MG/DL (0.70-1.30); GLOMERULAR FILTRATION RATE > 60.0 (>35); GLUCOSE, FASTING 83 MG/DL (70-100); POTASSIUM SERUM 4.1 MEQ/L (3.5-5.1); SODIUM LEVEL 145 MEQ/L (136-145); TOTAL PROTEIN 6.2 GM/DL (6.4-8.2)
== END ==
LOC: SKLAB6 07:00
PROVIDERS: ATTEND Internal Medicine
DX: I50.32 Chronic diastolic (congestive) heart failure (principal); I48.91 Unspecified atrial fibrillation; F41.9 Anxiety disorder, unspecified

== ENCOUNTER → 2019-10-08 | Outpatient (REF) | payer MEDICARE ==
[~2019-10-08] MED LIST changes: +BISO10TA10 PO; -BISO10TA6 PO
[2019-10-08 09:14] LABS: HEMATOCRIT 43.7 % (42.0-52.0); HEMOGLOBIN 13.6 g/dl (13.5-17.5); MEAN CORPUSCULAR HEMOGLOBIN 31.4 pg (27.0-33.0); MEAN CORPUSCULAR HGB CONC 31.1 g/dl (32.0-36.5); MEAN CORPUSCULAR VOLUME 100.9 fl (80.0-96.0); PLATELET COUNT, AUTOMATED 259 10^3/uL (150-450); RED BLOOD COUNT 4.33 10^6/uL (4.30-6.10); WHITE BLOOD COUNT 8.4 10^3/uL (4.0-10.0)
[2019-10-08 09:41] LABS: ALBUMIN 3.1 GM/DL (3.2-5.2); ALT/SGPT 22 U/L (12-78); BILIRUBIN,TOTAL 0.3 MG/DL (0.2-1.0); BLOOD UREA NITROGEN 17 MG/DL (7-18); CALCIUM LEVEL 8.9 MG/DL (8.8-10.2); CARBON DIOXIDE LEVEL 27 MEQ/L (21-32); CHLORIDE LEVEL 107 MEQ/L (98-107); CREATININE FOR GFR 1.12 MG/DL (0.70-1.30); GLOMERULAR FILTRATION RATE > 60.0 (>35); GLUCOSE, FASTING 114 MG/DL (70-100); POTASSIUM SERUM 4.3 MEQ/L (3.5-5.1); SODIUM LEVEL 142 MEQ/L (136-145); TOTAL PROTEIN 7.1 GM/DL (6.4-8.2)
== END ==
LOC: SKLAB6 07:00
PROVIDERS: ATTEND Internal Medicine
DX: Z79.899 Other long term (current) drug therapy (principal)

== ENCOUNTER → 2019-10-24 | Outpatient (REF) | payer MEDICARE ==
--- NOTE | 2019-10-24 10:58 | REP ---
Clinical: Congestion. Technique: Portable semiupright. Comparison: 10/31/2017. Findings: Mediastinum and cardiac silhouette are stable. Evidence of prior sternotomy and CABG again noted. No significant cardiomegaly. Diffuse chronic interstitial changes are appreciated. Mild interstitial edema cannot be excluded. No focal consolidation. No effusion. No pneumothorax. Impression: Chronic-appearing changes. Mild interstitial edema cannot be excluded Electronically Signed by Juan Call MD 10/24/2019 10:50 A
== END ==
LOC: SKLAB6 10:14
PROVIDERS: ATTEND Internal Medicine
DX: R09.81 Nasal congestion (principal)

== ENCOUNTER → 2019-10-25 | Outpatient (REF) | payer MEDICARE ==
[2019-10-25 10:46] LABS: BASO % 0.3 % (0.0-1.0); EOS % 0.3 % (0.0-3.0); HEMATOCRIT 41.7 % (42.0-52.0); HEMOGLOBIN 13.2 g/dl (13.5-17.5); LYMPH # 1.5 10^3/uL (1.5-5.0); MEAN CORPUSCULAR HEMOGLOBIN 31.7 pg (27.0-33.0); MEAN CORPUSCULAR HGB CONC 31.7 g/dl (32.0-36.5); MEAN CORPUSCULAR VOLUME 100.2 fl (80.0-96.0); MONO # 1.2 10^3/uL (0.0-0.8); MONO % 10.1 % (0.0-5.0); NEUTROPHILS # 8.9 10^3/uL (1.5-8.5); NEUTROPHILS % 75.2 % (36.0-66.0); PLATELET COUNT, AUTOMATED 235 10^3/uL (150-450); RED BLOOD COUNT 4.16 10^6/uL (4.30-6.10); WHITE BLOOD COUNT 11.8 10^3/uL (4.0-10.0)
[2019-10-25 10:50] LABS: APPEARANCE, URINE CLEAR (CLEAR); BACTERIA, URINE AUTO NEGATIVE (NEGATIVE); BILIRUBIN, URINE AUTO NEGATIVE (NEGATIVE); BLOOD, URINE BLOOD NEGATIVE (NEGATIVE); COLOR, URINE YELLOW (YELLOW); GLUCOSE, URINE (UA) AUTO NEGATIVE (NEGATIVE); KETONE, URINE AUTO NEGATIVE (NEGATIVE); LEUKOCYTE ESTERASE, URINE AUTO NEGATIVE (NEGATIVE); NITRITE, URINE AUTO NEGATIVE (NEGATIVE); PROTEIN, URINE AUTO NEGATIVE (NEGATIVE); RBC, URINE AUTO 7 /HPF (0-3); SPECIFIC GRAVITY URINE AUTO 1.021 (1.002-1.035); SQUAMOUS EPITHELIAL CELL UR AU 0 /HPF (0-6); UROBILINOGEN, URINE AUTO 0.2 mg/dL (0.0-2.0); WBC, URINE AUTO 1 /HPF (0-3)
[2019-10-25 11:15] LABS: BLOOD UREA NITROGEN 20 MG/DL (7-18); CALCIUM LEVEL 8.4 MG/DL (8.8-10.2); CARBON DIOXIDE LEVEL 26 MEQ/L (21-32); CHLORIDE LEVEL 106 MEQ/L (98-107); CREATININE FOR GFR 1.18 MG/DL (0.70-1.30); GLOMERULAR FILTRATION RATE > 60.0 (>35); GLUCOSE, FASTING 150 MG/DL (70-100); POTASSIUM SERUM 4.2 MEQ/L (3.5-5.1); SODIUM LEVEL 141 MEQ/L (136-145)
== END ==
LOC: SKLAB6 08:00
PROVIDERS: ATTEND Internal Medicine
DX: R50.9 Fever, unspecified (principal)

== ENCOUNTER → 2019-10-25 | Outpatient (CLI) | payer MEDICARE ==
--- NOTE | 2019-10-25 19:06 | REPVR ---
PROCEDURE INFORMATION: Exam: XR Chest, 1 View Exam date and time: 10/25/2019 6:28 PM Age: 84 years old Clinical history: Cough and fever; Additional info: Congested cough TECHNIQUE: Imaging protocol: XR of the chest Views: 1 view. COMPARISON: CR PORTABLE CHEST X-RAY 10/24/2019 10:37 AM FINDINGS: Lungs: Suboptimal inspiratory effort. Bilateral granulomas. Prominent pulmonary vascularity bilaterally likely related suboptimal inspiration. Mild congestive failure not excluded. Pleural space: Minimal thickening of the right minor fissure. Heart/Mediastinum: Status post CABG. Bones/joints: Status post sternotomy. IMPRESSION: Prominent pulmonary vascularity bilaterally likely related suboptimal inspiration. Mild congestive failure not excluded. Electronically signed by: Miah Leung On 10/25/2019 19:06:12 PM
== END ==
LOC: SKLAB6 17:15
PROVIDERS: ATTEND Internal Medicine
DX: R05 Cough (principal); R50.9 Fever, unspecified

== ENCOUNTER → 2020-02-05 | Outpatient (REF) | payer MEDICARE ==
[~2020-02-05] MED LIST changes: +ACET-897 PO; +ACET1TAB55 PO; +ACET65SU PR; -BISO10TA10 PO; +BISO10TA14 PO; +CLAR10CA3 PO; +DEPA1CAP PO; -DONE1TAB62 PO; +DONE1TAB64 PO; +FAMO20TA4 PO; +GUAIDM5UD PO; +HYOS125TA PO; +IPRA0.00 INH; +LASI40TA9 PO; +LORA0.5T5 PO; +MILKSUS3 PO; +MORP20SO3 PO; +NAME10TA PO; +POLYOPD OU; +PRED10TA2 PO; +SERT50TA29 PO; +VITMTA PO; +XARE15TA PO
--- NOTE | 2020-02-05 09:59 | REP ---
Portable chest, 09:33 a.m., single AP view with the patient sitting: Comparisons are 10/24/2019 and 10/25/2019. There is an incomplete inspiratory effort. There is under aeration of the lung bases particularly on the left. The lung triplett otherwise clear. There is a stable nodular density peripherally in the left lung, unchanged from a PA and lateral chest of 10/31/2017, likely a granuloma. There are sternotomy wires. Cardiac size is normal. The angel, mediastinum, skeletal structures are unremarkable. There are surgical clips in the upper abdomen per Impression: Incomplete inspiratory effort. No focal infiltrate. Under aeration of the lung bases. Stable granuloma in the left lung. Electronically Signed by Manoj Varela MD 02/05/2020 09:50 A
[2020-02-05 10:09] LABS: HEMATOCRIT 41.8 % (42.0-52.0); HEMOGLOBIN 13.7 g/dl (13.5-17.5); MEAN CORPUSCULAR HEMOGLOBIN 32.2 pg (27.0-33.0); MEAN CORPUSCULAR HGB CONC 32.8 g/dl (32.0-36.5); MEAN CORPUSCULAR VOLUME 98.1 fl (80.0-96.0); PLATELET COUNT, AUTOMATED 238 10^3/uL (150-450); RED BLOOD COUNT 4.26 10^6/uL (4.30-6.10); WHITE BLOOD COUNT 7.7 10^3/uL (4.0-10.0)
[2020-02-05 10:26] LABS: BLOOD UREA NITROGEN 14 MG/DL (7-18); CALCIUM LEVEL 8.4 MG/DL (8.8-10.2); CARBON DIOXIDE LEVEL 26 MEQ/L (21-32); CHLORIDE LEVEL 105 MEQ/L (98-107); CREATININE FOR GFR 1.14 MG/DL (0.70-1.30); GLOMERULAR FILTRATION RATE > 60.0 (>35); GLUCOSE, FASTING 147 MG/DL (70-100); SODIUM LEVEL 140 MEQ/L (136-145)
== END ==
LOC: SKLAB6 08:30
PROVIDERS: ATTEND Internal Medicine
DX: Z79.899 Other long term (current) drug therapy (principal)

== ENCOUNTER 2020-02-08 19:56 | Inpatient (IN) | payer MEDICARE, MEDICAID ==
[~2020-02-08] VITALS: Ht 175.3 cm; Wt 108.3 kg
[~2020-02-08 19:56] MED LIST changes: -ACET-897 PO; -ACET1TAB55 PO; -ACET65SU PR; -CLAR10CA3 PO; -DEPA1CAP PO; -FAMO20TA4 PO; -GUAIDM5UD PO; -HYOS125TA PO; -IPRA0.00 INH; -LASI40TA9 PO; -LORA0.5T5 PO; -MILKSUS3 PO; -MORP20SO3 PO; -NAME10TA PO; -POLYOPD OU; -PRED10TA2 PO; -SERT50TA29 PO; -VITMTA PO; -XARE15TA PO
[2020-02-08] MEDS ORDERED: NS 1,000 ML IV ONE (20:15)
[2020-02-08] MEDS ORDERED: ACETAMINOPHEN 650 MG SUPP PR ONE (20:15)
[2020-02-08] MEDS ORDERED: KETOROLAC 30 MG/ML VIAL (J1885) IV ONE (20:15)
[2020-02-08] MEDS ORDERED: VANCOMYCIN HCL 2,000 MG in D5W 500 ML IV ONE (20:30)
[2020-02-08] MEDS ORDERED: PIPERACILLIN/TAZOBACTAM SOD 3.375 GM in D5W MINI-BAG PLUS 50 ML IV ONE (20:30)
[2020-02-08 20:41] LABS: BASO % 0.3 % (0.0-1.0); HEMATOCRIT 42.9 % (42.0-52.0); HEMOGLOBIN 13.8 g/dl (13.5-17.5); LYMPH # 0.8 10^3/uL (1.5-5.0); LYMPH % 9.2 % (24.0-44.0); MEAN CORPUSCULAR HEMOGLOBIN 31.2 pg (27.0-33.0); MEAN CORPUSCULAR HGB CONC 32.2 g/dl (32.0-36.5); MEAN CORPUSCULAR VOLUME 96.8 fl (80.0-96.0); NEUTROPHILS % 78.5 % (36.0-66.0); PLATELET COUNT, AUTOMATED 246 10^3/uL (150-450); RED BLOOD COUNT 4.43 10^6/uL (4.30-6.10); WHITE BLOOD COUNT 8.9 10^3/uL (4.0-10.0)
[2020-02-08] MEDS ORDERED: VITMTA PO (20:55)
[2020-02-08] MEDS ORDERED: FAMO20TA4 PO (20:55)
[2020-02-08] MEDS ORDERED: LEVO500T3 PO (20:55)
[2020-02-08] MEDS ORDERED: IPRA0.00 INH (20:55)
[2020-02-08] MEDS ORDERED: DEPA1CAP PO (20:55)
[2020-02-08] MEDS ORDERED: PRED10TA2 PO (20:55)
[2020-02-08] MEDS ORDERED: SERT50TA29 PO (20:55)
[2020-02-08] MEDS ORDERED: ACET-897 PO (20:55)
[2020-02-08] MEDS ORDERED: CLAR10CA3 PO (20:55)
[2020-02-08] MEDS ORDERED: ACET1TAB55 PO (20:55)
[2020-02-08] MEDS ORDERED: NAME10TA PO (20:55)
[2020-02-08] MEDS ORDERED: LASI40TA9 PO (20:55)
[2020-02-08] MEDS ORDERED: POLYOPD OU (20:55)
[2020-02-08] MEDS ORDERED: GUAIDM5UD PO (20:55)
[2020-02-08] MEDS ORDERED: MILKSUS3 PO (20:55)
[2020-02-08] MEDS ORDERED: XARE15TA PO (20:55)
[2020-02-08] MEDS: VANCOMYCIN HCL 1,000 MG, VIAL MATE ADAPTER 1 EACH in D5W 250 ML IV SCH ×2 (21:00→21:45)
[2020-02-08 21:10] LABS: ALT/SGPT 29 U/L (12-78); BILIRUBIN,DIRECT < 0.1 MG/DL (0.0-0.2); BILIRUBIN,TOTAL 0.2 MG/DL (0.2-1.0); BLOOD UREA NITROGEN 21 MG/DL (7-18); CALCIUM LEVEL 8.4 MG/DL (8.8-10.2); CARBON DIOXIDE LEVEL 27 MEQ/L (21-32); CHLORIDE LEVEL 103 MEQ/L (98-107); CK-MB VALUE MASS < 1.0 NG/ML (<3.6); CPK CREATINE PHOSPHOKINASE 109 U/L (39-308); GLOMERULAR FILTRATION RATE > 60.0 (>35); GLUCOSE, FASTING 141 MG/DL (70-100); MB/CK RELATIVE INDEX 0.92 (< OR =4); NT-PRO BNP 500 PG/ML (<450); POTASSIUM SERUM 3.9 MEQ/L (3.5-5.1); SODIUM LEVEL 140 MEQ/L (136-145); TOTAL PROTEIN 7.2 GM/DL (6.4-8.2); TROPONIN I 0.02 NG/ML (< 0.10)
--- NOTE | 2020-02-08 21:30 | REP ---
Clinical: Cough and dyspnea. Comparison: 02/05/2020. Findings: Evaluation is limited by portable technique, underpenetration and poor inspiratory effort. Small scattered bilateral noncalcified nodules are suggested along with right basilar atelectasis, possible small right pleural effusion, and pulmonary vascular congestion. No pneumothorax. Mediastinum and cardiac silhouette are stable. Impression: 1. Pulmonary vascular congestion with suspected right basilar atelectasis and possible small right pleural effusion. 2. Small scattered bilateral pulmonary nodules cannot be excluded. Electronically Signed by Juan Call MD 02/08/2020 09:21 P
--- NOTE | 2020-02-08 22:22 | HPEPDOC ---
[facility] Medical History & Physical Date of Admission Feb 08, 2020 Date of Service: Feb 08, 2020 Primary Care Physician: ABBY AZEVEDO DO Attending Physician: RAQUEL MOSS MD History and Physical CHIEF COMPLAINT: Elevated temperature, dyspnea HISTORY OF PRESENT ILLNESS: Patient is an 84-year-old male resident of [facility] who presents to the emergency department after he was found to have a temperature of 103F. Patient underwent evaluation approximately 3 days prior to presentation at which point he tested positive for human metapneumovirus. He was started on PO Levaquin and a prednisone taper. Upon presentation to the emergency department, patient was found to be febrile with a temperature 103.5, pulse of 103, respiratory rate of 18, BP of 168/70 (102), was saturating at 90% on 2 L via NC. Respiratory virus panel was positive for human metanephrine virus. A chest x-ray indicated pulmonary vascular congestion, right basilar atelectasis with possible small right pleural effusion. Patient was treated with a Tylenol, Toradol, vancomycin, Zosyn in addition to albuterol nebulizers and a 1 L fluid bolus. Despite these measures, patient's blood pressure continued to decline to 91/44 (60). After discussion with patient's daughter, she wished to pursue a trial of presser therapy and ICU admission. In addition orders were started however, patient, daughter called back, reporting that she had decided to elect for comfort measures only. REVIEW OF SYSTEMS: Patient is unable to verbalize any complaints at the time of admission examination. 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 HOME MEDICATIONS: Please see below. PHYSICAL EXAMINATION: VITAL SIGNS: Temperature 101.1, pulse 91, respiratory rate 24, blood pressure 105/44 (64), pulse oximetry 98 % on 3 L via nasal cannula. GENERAL APPEARANCE: Intubated and examined in the emergency department. Patient is alert to verbal stimuli. He is able to follow some commands such as opening eyes and squeezing hands. HEENT: Normocephalic, atraumatic. Pupils are equal and reactive to light, sclera nonicteric. No cervical lymphadenopathy or JVD. CARDIOVASCULAR: Regularly irregular rate and rhythm. No murmurs auscultated LUNGS: Crackles and rhonchi auscultated throughout both anterior and posterior lung triplett bilaterally. Fair air movement., No accessory muscle use. ABDOMEN: Nontender, nondistended. No ascites or appreciable organomegaly MUSCULOSKELETAL: No notable atrophy or joint effusions. EXTREMITIES: 1+ pitting edema in lower extremities bilaterally. Radial and posterior tibial pulses 2+ bilaterally NEUROLOGICAL: Alert to verbal stimuli. Patient does carry history of severe dementia LABORATORY DATA: See below. IMAGING: Chest x-ray (02/08/2020): Pulmonary vascular congestion was suspected right basilar atelectasis and possible right small pleural effusion. Small scattered bilateral pulmonary nodules cannot be excluded. MICROBIOLOGY: Respiratory virus panel (02/08/2020): Human metanephrine virus Blood cultures (02/08/2020): Pending ASSESSMENT: Patient is a 84-year-old male, past medical history significant for coronary artery disease with bypass, OA with bilateral hip replacement, atrial fibrillation anticoagulated with Xarelto, severe Alzheimer's dementia, who pre sented to the emergency department from [facility] out of concern for increasing fever and dyspnea. Patient was previously treated by his primary care provider after testing positive via respiratory panel for many human metapneumovirus 3 days prior to presentation. [facility], patient continued to demonstrate intermittent fevers. Upon transfer the emergency department, patient remained febrile. He was treated with Tylenol, DuoNeb's, IV fluid. Chest x-ray consistent with viral pneumonia. Patient's blood pressure dropped to a low of 91/44 (60). At the time of admission, and status post 1 L bolus and IV abx, patient's blood pressure has increased to 105/44 (64). Patient is a DNR/DNI with limited medical interventions per signed MOLST form. Pts daughter was contacted by the admitting physician and updated regarding her father's conditions and signed wishes. Daughter originally asked that pt be started on a limited trial of presser therapy. However, following reconsideration, she contacted the hospital and asked that her father be made HARDWARE MANAGER. In light of this, patient will be admitted to the hospital for comfort care. PLAN: #Comfort care Patient's daughter has elected for comfort care. Patient has documented wishes of DNR/DNI. Scopolamine for secretions. Zofran for nausea. Roxanol, Ativan for comfort. Tylenol for pain/fever. Bowel care as needed. No further vitals or laboratory studies. Laboratory Data Labs 24H Laboratory Tests 2 02/08/20 20:22: Immature Granulocyte % (Auto) 1.0, Neutrophils (%) (Auto) 78.5H, Lymphocytes (%) (Auto) 9.2L, Monocytes (%) (Auto) 11.0H, Eosinophils (%) (Auto) 0.0, Basophils (%) (Auto) 0.3, Neutrophils # (Auto) 7.0, Lymphocytes # (Auto) 0.8L, Monocytes # (Auto) 1.0H, Eosinophils # (Auto) 0.0, Basophils # (Auto) 0.0, Nucleated Red Blood Cells % (auto) 0.0, Urine Color YELLOW, Urine Appearance CLEAR, Urine pH 5.0, Urine Specific [place] 1.014, Urine Protein NEGATIVE, Urine Glucose (UA) NEGATIVE, Urine Ketones TRACEH, Urine Blood NEGATIVE, Urine Nitrite NEGATIVE, Urine Bilirubin NEGATIVE, Urine Urobilinogen 0.2, Urine Leukocyte Esterase NEGATIVE, Urine WBC (Auto) 1, Urine RBC (Auto) 4H, Urine Hyaline Casts (Auto) 0, Urine Bacteria (Auto) NEGATIVE, Urine Squamous Epithelial Cells 0, Urine Sperm (Auto) , Anion Gap 10, Glomerular Filtration Rate > 60.0, Lactic Acid Level 3.8*H, Calcium Level 8.4L, Total Bilirubin 0.2, Direct Bilirubin < 0.1, Aspartate Amino Transf (AST/SGOT) 21, Alanine Aminotransferase (ALT/SGPT) 29, Alkaline Phosphatase 76, Total Creatine Kinase 109, Creatine Kinase MB < 1.0, Creatine Kinase MB Relative Index 0.92, Troponin I 0.02, JH-[id number]-[id number]-Type Natriure tic Peptide 500H, Total Protein 7.2, Albumin 3.0L, Albumin/Globulin Ratio 0.71L 02/08/20 22:13: POC pH (Misc Panel) 7.431, POC Base Excess (Misc Panel) 3.0, POC Saturated Percent O2 (Misc) 95, POC pO2 (Misc Panel) 75.0L, POC pCO2 (Misc Panel) 40.3, POC HCO3 (Misc Panel) 26.8H, POC Total CO2 (Misc Panel) 28.0H CBC/BMP Laboratory Tests 02/08/20 20:22 Microbiology Microbiology 02/08/20 Respiratory Virus Panel (PCR) ([facility]) - Final, Complete Human Metapneumovirus 02/08/20 Blood Culture, Received Pending 02/08/20 Blood Culture, Received Pending Home Medications Scheduled PRN Acetaminophen (Acetaminophen) 650 Mg Supp.rect, 650 MG CA Q4HP PRN for MILD PAIN or TEMP > 101 Hyoscyamine Sulfate (Hyoscyamine Sulfate) 0.125 Mg Tab.subl, 0.125 MG PO Q4HP PRN for TERMINAL SECRETIONS Use sublingually if unable to swallow Lorazepam (Lorazepam) 0.5 Mg Tablet, 0.5 MG PO Q4HP PRN for ANXIETY/AGITATION Use sublingually if unable to swallow Morphine Sulfate (Morphine Sulfate) 100 Mg/5 Ml Solution, 0.25-1 ML PO Q2H PRN for PAIN OR DYSPNEA Use sublingually if unable to swallow Allergies Coded Allergies: No Known Allergies (Verified , 01/04/04) A-FIB/CHADSVASC A-FIB History Current/History of A-Fib/PAF?: Yes Current PO Anticoag Therapy: Yes GME ATTESTATION GME ATTESTATION My faculty preceptor for this patient encounter was physically present during the encounter and was fully available. All aspects of the patient interview, examination, medical decision making process, and medical care plan development were reviewed and approved by the faculty preceptor. The faculty preceptor is aware and concurs with the plan as stated in the body of this note and will attest to such by his/her cosignature. ATTENDING NOTE TIME OF SERVICE 1026PM I reviewed the note and agree with the findings as documented by with the addition of the following: Mr. Thomas is an 84[facility] with a history of CAD/CABG and HTN who was initially admitted for management of sepsis secondary to human metapneumovirus; shortly after admission, his daughter called his daughter requested transitioning to HARDWARE MANAGER. EMILY FERRARA DO Feb 08, 2020 22:22 RAQUEL MOSS MD Feb 09, 2020 01:14
[2020-02-08] MEDS ORDERED: NOREPINEPHRINE BITARTRATE 8 MG in D5W 500 ML IV SCH (22:40)
[2020-02-08] MEDS ORDERED: SODIUM CHLORIDE 0.9% 1000ML IV ONE (23:00)
[2020-02-08] MEDS ORDERED: VANCOMYCIN HCL 1,620 MG in IV FLUID PLACE HOLDER 1 EA IV SCH (23:00)
[2020-02-08] MEDS ORDERED: PIPERACILLIN/TAZOBACTAM SOD 3.375 GM in D5W MINI-BAG PLUS 50 ML IV SCH (23:00)
[2020-02-08] MEDS: IPRATROPIUM 0.5MG/ALBUTEROL 2.5MG INH SOL UD 3ML (DUONEB)(J7620) NEB SCH ×3 (23:07→23:10)
[2020-02-08] MEDS ORDERED: MORPHINE 2 MG/ML 1ML VIAL (J2270) IV PRN (23:15)
[2020-02-08] MEDS ORDERED: ONDANSETRON 4MG/2ML VIAL (J2405) IV PRN (23:15)
[2020-02-08] MEDS ORDERED: SCOPOLAMINE 1MG TRANSDERMAL PATCH TOP PRN (23:15)
[2020-02-08] MEDS ORDERED: FLEET ENEMA PR PRN (23:15)
[2020-02-08] MEDS ORDERED: ATROPINE SULFATE 1% OP SOLN 2 ML BTL SL PRN (23:15)
[2020-02-08] MEDS ORDERED: HYOSCYAMINE SULFATE 0.125 MG SUBL TABLET PO PRN (23:15)
[2020-02-08] MEDS ORDERED: LORazepam 2 MG/ML VIAL (J2060) IV PRN (23:15)
[2020-02-08 23:30] VITALS: BP 105/48
[2020-02-08] MEDS ORDERED: ACETAMINOPHEN 650 MG SUPP PR PRN (23:45)
[2020-02-09] MEDS ORDERED: HYOS125TA PO (10:30)
[2020-02-09] MEDS ORDERED: MORP20SO3 PO (10:30)
[2020-02-09] MEDS ORDERED: ACET65SU PR (10:30)
[2020-02-09] MEDS ORDERED: LORA0.5T5 PO (10:30)
--- NOTE | 2020-02-09 10:39 | DS.PDOC ---
Discharge Summary General Date of Admission Feb 08, 2020 at 22:24 Date of Discharge 02/09/20 Discharge [address] DISCHARGE TO [facility] : COMFORT MEASURES ONLY, DNR, DNI DISCHARGE DIAGNOSES: Sepsis Hypotension Human metapneumovirus respiratory tract infection acute hypoxic respiratory failure viral pneumonia acute encephalopathy due to viral pneumonia Atrial fibrillation, anticoagulation with Xarelto Coronary artery disease, s/p triple vessel bypass graft, 1997 Severe b/l hip OA, s/p b/l hip replacement, 1996 (R), 2003(L) Alzhimer's dementia with behavior Dyslipidemia DISCHARGE MEDICATIONS: PLS SEE BELOW HOSPITAL COURSE: 84 y/o male sent from [facility] due to fever and congestion. He was found to have a temperature 103.5, pulse of 103, respiratory rate of 18, BP of 168/70 (102), was saturating at 90% on 2 L via NC. His goal exam significant for moderate amount of tracheal secretions per suction. Laboratory evaluation did not reveal a leukocytosis. MCV 96.8. Electrolytes within normal limits, BUN/Cr of 21/1.2, lactic acidosis of 3.8, negative cardiac markers and an elevated BNP of 500. Urine was negative for any signs of infection. Respiratory virus panel was positive for human metanephrine virus. A chest x-ray indicated pulmonary vascular congestion, right basilar atelectasis with possible small right pleural effusion. Patient was treated with a Tylenol suppository, Toradol for any pain or discomfort. He received a dose of vancomycin and Zosyn in addition to albuterol nebulizers and a 1 L fluid bolus.Pt remained hypotensive despite fluid hydration with systolic of 91/44 (60). Family declined further resuscitative efforts including ICU care for vasopressor therapy. He was kept COMFORT MEASURES ONLY per health care proxy's decision in keeping with patient's prior wishes. He was placed on hospice meds and subsequently transferred to [facility]. DISCHARGE PHYSICAL EXAMINATION: VITALS: PLS SEE BELOW GEN: unresponsive HEENT: congested. moist mucus membranes. no stridor. (+) JVD Lungs: diminished. b/l rhonchi Heart: S1,S2 Abd: obese nt nd (+)bs ext: (+) edema DISCHARGE LABORATORY DATA, MICROBIOLOGY, IMAGING STUDIES: PLS SEE BELOW Clinical: Cough and dyspnea. Comparison: 02/05/2020. Findings: Evaluation is limited by portable technique, underpenetration and poor inspiratory effort. Small scattered bilateral noncalcified nodules are sugges padilla along with right basilar atelectasis, possible small right pleural effusion, and pulmonary vascular congestion. No pneumothorax. Mediastinum and cardiac silhouette are stable. Impression: 1. Pulmonary vascular congestion with suspected right basilar atelectasis and possible small right pleural effusion. 2. Small scattered bilateral pulmonary nodules cannot be excluded. Electronically Signed by Juan Call MD 02/08/2020 09:21 P DD: Juan Call MD 02/08/20 4206 TIME SPENT ON DISCHARGE: 30MINUTES. Vital Signs/I&Os Vital Signs Date Time Temp Pulse Resp B/P (MAP) Pulse Ox O2 Delivery O2 Flow Rate FiO2 02/09/20 00:48 98.2 02/08/20 23:30 88 24 105/48 (67) 93 3.0 02/08/20 22:45 Nasal Cannula I&O- Last 24 Hours up to 6 AM 02/09/20 05:59 Intake Total 0 ml Output Total 100 ml Balance -100 ml Laboratory Data Labs 24H Laboratory Tests 2 02/08/20 20:22: Immature Granulocyte % (Auto) 1.0, Neutrophils (%) (Auto) 78.5H, Lymphocytes (%) (Auto) 9.2L, Monocytes (%) (Auto) 11.0H, Eosinophils (%) (Auto) 0.0, Basophils (%) (Auto) 0.3, Neutrophils # (Auto) 7.0, Lymphocytes # (Auto) 0.8L, Monocytes # (Auto) 1.0H, Eosinophils # (Auto) 0.0, Basophils # (Auto) 0.0, Nucleated Red Blood Cells % (auto) 0.0, Urine Color YELLOW, Urine Appearance CLEAR, Urine pH 5.0, Urine Specific [place] 1.014, Urine Protein NEGATIVE, Urine Glucose (UA) NEGATIVE, Urine Ketones TRACEH, Urine Blood NEGATIVE, Urine Nitrite NEGATIVE, Urine Bilirubin NEGATIVE, Urine Urobilinogen 0.2, Urine Leukocyte Esterase NEGATIVE, Urine WBC (Auto) 1, Urine RBC (Auto) 4H, Urine Hyaline Casts (Auto) 0, Urine Bacteria (Auto) NEGATIVE, Urine Squamous Epithelial Cells 0, Urine Sperm (Auto) , Anion Gap 10, Glomerular Filtration Rate > 60.0, Lactic Acid Level 3.8*H, Calcium Level 8.4L, Total Bilirubin 0.2, Direct Bilirubin < 0.1, Aspartate Amino Transf (AST/SGOT) 21, Alanine Aminotransferase (ALT/SGPT) 29, Alkaline Phosphatase 76, Total Creatine Kinase 109, Creatine Kinase MB < 1.0, Creatine Kinase MB Relative Index 0.92, Troponin I 0.02, KU-Vob-N-Type Natriuretic Peptide 500H, Total Protein 7.2, Albumin 3.0L, Albumin/Globulin Ratio 0.71L 02/08/20 22:13: POC pH (Misc Panel) 7.431, POC Base Excess (Misc Panel) 3.0, POC Saturated Percent O2 (Misc) 95, POC pO2 (Misc Panel) 75.0L, POC pCO2 (Misc Panel) 40.3, POC HCO3 (Misc Panel) 26.8H, POC Total CO2 (Misc Panel) 28.0H CBC/BMP Laboratory Tests 02/08/20 20:22 Microbiology Microbiology 02/08/20 Respiratory Virus Panel (PCR) ([facility]) - Final, Complete Human Metapneumovirus 02/08/20 Blood Culture, Received Pending 02/08/20 Blood Culture, Received Pending Discharge Medications Scheduled PRN Acetaminophen (Acetaminophen) 650 Mg Supp.rect, 650 MG NM Q4HP PRN for MILD PAIN or TEMP > 101 Hyoscyamine Sulfate (Hyoscyamine Sulfate) 0.125 Mg Tab.subl, 0.125 MG PO Q4HP PRN for TERMINAL SECRETIONS Use sublingually if unable to swallow Lorazepam (Lorazepam) 0.5 Mg Tablet, 0.5 MG PO Q4HP PRN for ANXIETY/AGITATION Use sublingually if unable to swallow Morphine Sulfate (Morphine Sulfate) 100 Mg/5 Ml Solution, 0.25-1 ML PO Q2H PRN for PAIN OR DYSPNEA Use sublingually if unable to swallow Allergies Coded Allergies: No Known Allergies (Verified , 01/04/04) GURDEEP AGUILAR MD Feb 09, 2020 10:39
[2020-02-09] MEDS ORDERED: MORPHINE 10MG/0.5ML ORAL CONCENTRATE SOLUTION U/D SL ONE (11:30)
--- NOTE | 2020-02-09 12:43 | IPN ---
DATE: 02/09/2020 Patient is unresponsive with inability to answer review of systems. No fever or chills overnight. The patient had a Maximum temperature (T-max) of 103.5, cu Temperature 98.2 The patient had a maximum temperature (T-max) of 103.5. Currently comfort measures, pulse 88, respiratory 24, blood pressure 105/48, 92% on 3 liters nasal cannula. Generally, the patient is unresponsive. Does not answer questions. Does not follow commands. Lungs: Bilateral rhonchi. Air trace diminished. Heart: S1, S2. Regularly irregular. Abdomen: Soft, nontender, nondistended. Positive bowel sounds. Extremities: 1+ pitting edema. ASSESSMENT/PLAN: 84-year-old comfort measures only per family. Patient has viral pneumonia secondary to metapneumovirus. He is a DO NOT RESUSCITATE, DO NOT INTUBATE.
--- NOTE | 2020-02-09 20:09 | ECGEPIP ---
[facility] - ED Test Date: 2020-02-08 Pat Name: TAMEKA BRYANT Department: Room: [place] [address] Gender: Male Staff Analyst: princess : [id number] Requested By: ADELE Raza Order Number: [id number] Reading MD: Lashonda Borja Measurements Intervals [place] Rate: 96 P: -36 WA: 154 QRS: -28 QRSD: 97 T: 127 QT: 330 QTc: 419 Interpretive Statements SINUS RHYTHM POSSIBLE LEFT ATRIAL ENLARGEMENT INCOMPLETE RIGHT BUNDLE BRANCH BLOCK POSSIBLE ANTERIOR MYOCARDIAL INFARCTION, PROBABLY OLD INFERIOR MYOCARDIAL INFARCTION, PROBABLY OLD MODERATE T-WAVE ABNORMALITY, CONSIDER LATERAL ISCHEMIA INCREASED RATE 11/01/17 Electronically Signed on 02-09-2020 20:09:26 EDT by Lashonda Borja
== END 2020-02-09 12:15 | DRG 871 ==
LOC: EDBD 19:56 → M ED 19:56 → M ED INP 22:24 → ENRESERV 22:48 → M MSPAV 23:40
PROVIDERS: ADMIT Internal Medicine; ATTEND General Practice
DX: A41.9 Sepsis, unspecified organism (principal); J12.3 Human metapneumovirus pneumonia; J96.01 Acute respiratory failure with hypoxia; G93.40 Encephalopathy, unspecified; F02.81 Dementia in other diseases classified elsewhere, unspecified severity, with behavioral disturbance; Z66 Do not resuscitate; Z51.5 Encounter for palliative care; E78.5 Hyperlipidemia, unspecified; I25.10 Atherosclerotic heart disease of native coronary artery without angina pectoris; Z95.1 Presence of aortocoronary bypass graft; I48.91 Unspecified atrial fibrillation; Z79.01 Long term (current) use of anticoagulants; G30.9 Alzheimer's disease, unspecified; Z96.641 Presence of right artificial hip joint; Z96.642 Presence of left artificial hip joint; Z79.899 Other long term (current) drug therapy